=== PATIENT | female | born 1985 | race Two or more races ===

== ENCOUNTER → 2017-07-07 | Outpatient (REF) | payer OTHER ==
[2017-07-07 20:49] LABS: INFLUENZA A AMPLIFICATION NEGATIVE (NEGATIVE); INFLUENZA B AMPLIFICATION NEGATIVE (NEGATIVE)
== END ==
LOC: M SFHCLERA 17:49
DX: R53.81 Other malaise (principal)

== ENCOUNTER → 2017-07-31 | Outpatient (CLI) | payer OTHER | LOC: M RAD 12:55 | DX: R07.89 Other chest pain (principal) | CPT/HCPCS: A9540 ==

== ENCOUNTER → 2018-02-04 | Outpatient (REF) | payer OTHER | LOC: M SFHCLERA 20:19 | DX: J02.9 Acute pharyngitis, unspecified (principal) ==

== ENCOUNTER 2018-02-17 14:41 | Emergency (ER) | payer OTHER ==
[2018-02-17] MEDS: LORazepam 2 MG/ML VIAL (J2060) IV ×2 (15:01→16:44)
[2018-02-17] MEDS: KETOROLAC 30 MG/ML VIAL (J1885) IV (15:01)
[2018-02-17] MEDS: LIDOCAINE 5% (LIDODERM) PATCH TD (15:22)
[2018-02-17] MEDS: ACETAMINOPHEN 325 MG TAB PO (16:44)
[2018-02-17] MEDS ORDERED: **NOTE PATIENT COMMENT** MISC XX (21:00)
== END 2018-02-17 17:29 | disposition home or self-care (01) ==
LOC: M ED 14:41
DX: M54.5 Low back pain (principal); I10 Essential (primary) hypertension; F41.9 Anxiety disorder, unspecified; F32.9 Major depressive disorder, single episode, unspecified; Z88.1 Allergy status to other antibiotic agents; Z88.8 Allergy status to other drugs, medicaments and biological substances; Z88.5 Allergy status to narcotic agent
CPT/HCPCS: J1885

== ENCOUNTER 2018-09-14 19:45 | Emergency (ER) | payer OTHER ==
[~2018-09-14] VITALS: Ht 167.6 cm; Wt 118.2 kg
[~2018-09-14 19:45] MED LIST: CYCL5TAB PO; LIDO5DIS41 TOP
[2018-09-14] MEDS ORDERED: TRAZ-160 (20:01)
[2018-09-14] MEDS ORDERED: SUMA6INJ16 (20:01)
[2018-09-14] MEDS ORDERED: ARIP1TAB10 (20:01)
[2018-09-14] MEDS ORDERED: ZYRTTAB8 PO (20:01)
[2018-09-14] MEDS ORDERED: PROAAER10 (20:01)
[2018-09-14] MEDS ORDERED: ELIQ2.5T (20:01)
[2018-09-14] MEDS ORDERED: ALPR1TAB3 (20:01)
[2018-09-14] MEDS ORDERED: OXTE600T (20:01)
[2018-09-14] MEDS ORDERED: HYDR12CA (20:01)
[2018-09-14] MEDS ORDERED: VIIB40TA (20:01)
[2018-09-14] MEDS ORDERED: MONT10TA2 (20:01)
[2018-09-14] MEDS ORDERED: PROP80CA (20:01)
[2018-09-14] MEDS ORDERED: FOLI400T PO (20:01)
[2018-09-14] MEDS ORDERED: VIIB10TA (20:01)
[2018-09-14] MEDS ORDERED: NS 1,000 ML IV ONE (20:45)
[2018-09-14] MEDS ORDERED: ONDANSETRON 4MG/2ML VIAL (J2405) IV ONE (20:45)
[2018-09-14 20:58] LABS: BASO # 0.1 10^3/uL (0.0-0.2); BASO % 0.7 % (0.0-1.0); EOS # 0.2 10^3/uL (0.0-0.50); HEMATOCRIT 42.7 % (36.0-47.0); HEMOGLOBIN 14.2 g/dl (12.0-15.5); LYMPH # 2.3 10^3/uL (1.5-4.5); LYMPH % 31.1 % (24.0-44.0); MEAN CORPUSCULAR HEMOGLOBIN 27.4 pg (27.0-33.0); MEAN CORPUSCULAR HGB CONC 33.3 g/dl (32.0-36.5); MEAN CORPUSCULAR VOLUME 82.3 fl (80.0-96.0); MONO # 0.5 10^3/uL (0.0-0.8); MONO % 6.5 % (0.0-5.0); NEUTROPHILS # 4.5 10^3/uL (1.8-7.7); NEUTROPHILS % 59.4 % (36.0-66.0); PLATELET COUNT, AUTOMATED 198 10^3/uL (150-450); RED BLOOD COUNT 5.19 10^6/uL (4.00-5.40); WHITE BLOOD COUNT 7.5 10^3/uL (4.0-10.0)
[2018-09-14 21:27] LABS: ALBUMIN 3.5 GM/DL (3.2-5.2); ALT/SGPT 48 U/L (12-78); AMYLASE 39 U/L (25-115); BILIRUBIN,TOTAL 0.6 MG/DL (0.2-1.0); BLOOD UREA NITROGEN 15 MG/DL (7-18); CALCIUM LEVEL 8.6 MG/DL (8.5-10.1); CARBON DIOXIDE LEVEL 22 MEQ/L (21-32); CHLORIDE LEVEL 111 MEQ/L (98-107); CREATININE FOR GFR 0.71 MG/DL (0.55-1.30); GLOMERULAR FILTRATION RATE > 60.0 (>60); GLUCOSE, FASTING 82 MG/DL (70-100); HCG, SERUM QUANTITATIVE < 1.0 MIU/ML; LIPASE 94 U/L (73-393); POTASSIUM SERUM 4.1 MEQ/L (3.5-5.1); SODIUM LEVEL 142 MEQ/L (136-145); TOTAL PROTEIN 6.8 GM/DL (6.4-8.2)
[2018-09-14] MEDS ORDERED: ONDA4TAB6 PO (22:06)
[2018-09-14 22:33] VITALS: BP 123/78
== END 2018-09-14 22:34 | disposition home or self-care (01) ==
LOC: M ED 19:45
DX: R11.2 Nausea with vomiting, unspecified (principal); I10 Essential (primary) hypertension; J45.909 Unspecified asthma, uncomplicated; F32.9 Major depressive disorder, single episode, unspecified; F41.9 Anxiety disorder, unspecified; Z88.1 Allergy status to other antibiotic agents; Z88.5 Allergy status to narcotic agent; Z88.8 Allergy status to other drugs, medicaments and biological substances; Z91.041 Radiographic dye allergy status
CPT/HCPCS: 80053; 82150; 83690; 84702; 85025; 96361; 96374; 99284; J2405

== ENCOUNTER 2018-12-11 03:12 | Emergency (ER) | payer OTHER ==
[~2018-12-11] VITALS: Ht 167.6 cm; Wt 117.7 kg
[~2018-12-11 03:12] MED LIST changes: +ALPR1TAB3; +ARIP1TAB10; +ELIQ2.5T; +FOLI400T PO; +HYDR12CA; +MONT10TA2; +ONDA4TAB6 PO; +OXTE600T; +PROAAER10; +PROP80CA; +SUMA6INJ16; +TRAZ-252; +VIIB10TA; +VIIB40TA; +ZYRTTAB8 PO
[2018-12-11] MEDS ORDERED: METAL LOCK LOOP XX ONE (03:27)
[2018-12-11 03:54] LABS: BASO # 0.1 10^3/uL (0.0-0.2); BASO % 0.7 % (0.0-1.0); EOS # 0.2 10^3/uL (0.0-0.50); EOS % 2.3 % (0.0-3.0); HEMATOCRIT 40.8 % (36.0-47.0); HEMOGLOBIN 13.8 g/dl (12.0-15.5); LYMPH # 2.7 10^3/uL (1.5-4.5); LYMPH % 39.7 % (24.0-44.0); MEAN CORPUSCULAR HEMOGLOBIN 27.9 pg (27.0-33.0); MEAN CORPUSCULAR HGB CONC 33.8 g/dl (32.0-36.5); MEAN CORPUSCULAR VOLUME 82.4 fl (80.0-96.0); MONO # 0.6 10^3/uL (0.0-0.8); NEUTROPHILS # 3.4 10^3/uL (1.8-7.7); NEUTROPHILS % 49.2 % (36.0-66.0); PLATELET COUNT, AUTOMATED 202 10^3/uL (150-450); RED BLOOD COUNT 4.95 10^6/uL (4.00-5.40); WHITE BLOOD COUNT 6.9 10^3/uL (4.0-10.0)
[2018-12-11 04:48] VITALS: BP 130/79
== END 2018-12-11 04:50 | disposition home or self-care (01) ==
LOC: M ED 03:12
DX: N92.4 Excessive bleeding in the premenopausal period (principal); I10 Essential (primary) hypertension; J45.909 Unspecified asthma, uncomplicated; D68.51 Activated protein C resistance; E66.9 Obesity, unspecified; Z79.899 Other long term (current) drug therapy; Z88.1 Allergy status to other antibiotic agents; Z88.5 Allergy status to narcotic agent; Z88.8 Allergy status to other drugs, medicaments and biological substances; Z91.89 Other specified personal risk factors, not elsewhere classified

== ENCOUNTER 2018-12-14 12:43 | Emergency (ER) | payer OTHER ==
[~2018-12-14] VITALS: Ht 167.6 cm; Wt 118.9 kg
[2018-12-14 14:11] LABS: BASO % 0.8 % (0.0-1.0); EOS # 0.2 10^3/uL (0.0-0.50); EOS % 3.8 % (0.0-3.0); HEMOGLOBIN 13.9 g/dl (12.0-15.5); LYMPH # 1.5 10^3/uL (1.5-4.5); LYMPH % 31.1 % (24.0-44.0); MEAN CORPUSCULAR HEMOGLOBIN 27.8 pg (27.0-33.0); MEAN CORPUSCULAR HGB CONC 33.9 g/dl (32.0-36.5); MONO # 0.4 10^3/uL (0.0-0.8); MONO % 7.6 % (0.0-5.0); NEUTROPHILS # 2.7 10^3/uL (1.8-7.7); NEUTROPHILS % 56.5 % (36.0-66.0); PLATELET COUNT, AUTOMATED 211 10^3/uL (150-450); WHITE BLOOD COUNT 4.7 10^3/uL (4.0-10.0)
[2018-12-14] MEDS ORDERED: NS 1,000 ML IV ONE (14:45)
[2018-12-14] MEDS ORDERED: diphenhydrAMINE INJ 50MG/ML VIAL (J1200) IV ONE (14:45)
[2018-12-14] MEDS ORDERED: METOCLOPRAMIDE INJ 10MG/2ML VIAL (J2765) IV ONE (14:45)
[2018-12-14 14:46] LABS: ALBUMIN 3.5 GM/DL (3.2-5.2); ALT/SGPT 48 U/L (12-78); BILIRUBIN,DIRECT 0.2 MG/DL (0.0-0.2); BILIRUBIN,TOTAL 0.7 MG/DL (0.2-1.0); BLOOD UREA NITROGEN 15 MG/DL (7-18); CALCIUM LEVEL 8.8 MG/DL (8.5-10.1); CARBON DIOXIDE LEVEL 25 MEQ/L (21-32); CHLORIDE LEVEL 108 MEQ/L (98-107); CREATININE FOR GFR 0.82 MG/DL (0.55-1.30); GLOMERULAR FILTRATION RATE > 60.0 (>60); GLUCOSE, FASTING 114 MG/DL (70-100); LIPASE 79 U/L (73-393); POTASSIUM SERUM 3.7 MEQ/L (3.5-5.1); SODIUM LEVEL 143 MEQ/L (136-145); TOTAL PROTEIN 6.5 GM/DL (6.4-8.2)
[2018-12-14 14:56] LABS: HCG, SERUM QUALITATIVE NEGATIVE (NEGATIVE)
[2018-12-14] MEDS ORDERED: VANC125C3 PO (16:27)
[2018-12-14] MEDS ORDERED: VANCOMYCIN ORAL SOL 250MG/5ML ORAL SYRINGE PO ONE (16:30)
[2018-12-14] MEDS ORDERED: PERCOCET 5MG/325MG TAB PO ONE (16:45)
[2018-12-14 17:13] VITALS: BP 110/68
== END 2018-12-14 18:12 | disposition home or self-care (01) ==
LOC: M ED 15:01
DX: A04.72 Enterocolitis due to Clostridium difficile, not specified as recurrent (principal); R31.9 Hematuria, unspecified; R11.10 Vomiting, unspecified; R19.7 Diarrhea, unspecified; I10 Essential (primary) hypertension; D68.59 Other primary thrombophilia; J45.909 Unspecified asthma, uncomplicated; Z79.899 Other long term (current) drug therapy; Z88.1 Allergy status to other antibiotic agents; Z88.5 Allergy status to narcotic agent; Z88.8 Allergy status to other drugs, medicaments and biological substances
CPT/HCPCS: 36415; 80048; 80076; 81001; 83690; 84702; 84703; 85025; 87507; 96361; 96374; 96375; 99284; J1200; J2765

== ENCOUNTER 2019-02-01 11:38 | Emergency (ER) | payer OTHER ==
[~2019-02-01] VITALS: Ht 167.6 cm; Wt 120.1 kg
[~2019-02-01 11:38] MED LIST changes: +VANC125C3 PO
[2019-02-01] MEDS ORDERED: DERMABOND TOPICAL SKIN ADHESIVE TOP ONE (12:45)
[2019-02-01] MEDS ORDERED: ADACEL/BOOSTRIX VACCINE (DIPHTH/PERTUSS/ACELL/TETANUS)0.5ML SYR (90715) IM ONE (12:45)
--- NOTE | 2019-02-01 13:01 | REP ---
Clinical: Trauma. Technique: AP, lateral, bilateral oblique views right second digit . Findings: The osseous structures and joint spaces are intact and normal. There is no evidence for acute fracture or dislocation. Soft tissue injury overlying the distal interphalangeal joint and distal phalanx noted. No radiodense foreign body. Impression: Soft tissue injury. No foreign body. No acute fracture or dislocation. Electronically Signed by Leo Atkinson MD 02/01/2019 12:52 P
[2019-02-01 13:39] VITALS: BP 119/75
== END 2019-02-01 13:44 | disposition home or self-care (01) ==
LOC: M ED 11:38
DX: S61.200A Unspecified open wound of right index finger without damage to nail, initial encounter (principal); W26.8XXA Contact with other sharp object(s), not elsewhere classified, initial encounter; Y92.013 Bedroom of single-family (private) house as the place of occurrence of the external cause; Y93.E5 Activity, floor mopping and cleaning; Y99.0 Civilian activity done for income or pay

== ENCOUNTER 2019-02-02 10:14 | Emergency (ER) | payer OTHER ==
[~2019-02-02] VITALS: Ht 167.6 cm; Wt 117.3 kg
[2019-02-02 10:15] VITALS: BP 135/86
[2019-02-02] MEDS ORDERED: NEOSPORIN OINT 0.9 GM PKT (FLOOR STOCK) TOP ONE (10:45)
[2019-02-02] MEDS ORDERED: NEOSPORIN OINT 0.9 GM PKT (FLOOR STOCK) As Ordered ONE (10:46)
[2019-02-03] MEDS ORDERED: NEOSPORIN TOP OINT 15GM TOP ONE (09:00)
== END 2019-02-02 11:05 | disposition home or self-care (01) ==
LOC: M ED 10:14
DX: S61.200D Unspecified open wound of right index finger without damage to nail, subsequent encounter (principal)

== ENCOUNTER → 2019-03-20 | Outpatient (REF) | payer OTHER | LOC: M SFHCLERA 11:23 | PROVIDERS: ATTEND Nurse Practitioner Family | DX: R53.81 Other malaise (principal) ==

== ENCOUNTER → 2019-05-23 | Outpatient (CLI) | payer OTHER ==
[~2019-05-23] MED LIST changes: +ONDA8TAB8 PO; +ULTR50TA8 PO
[2019-05-23 15:26] LABS: BASO % 0.6 % (0.0-1.0); EOS # 0.1 10^3/uL (0.0-0.5); EOS % 1.5 % (0.0-3.0); HEMATOCRIT 44.8 % (36.0-47.0); HEMOGLOBIN 14.8 g/dl (12.0-15.5); LYMPH % 31.4 % (24.0-44.0); MEAN CORPUSCULAR HEMOGLOBIN 27.5 pg (27.0-33.0); MEAN CORPUSCULAR VOLUME 83.3 fl (80.0-96.0); MONO # 0.4 10^3/uL (0.0-0.8); MONO % 5.4 % (0.0-5.0); NEUTROPHILS # 3.9 10^3/uL (1.5-8.5); NEUTROPHILS % 60.9 % (36.0-66.0); PLATELET COUNT, AUTOMATED 206 10^3/uL (150-450); RED BLOOD COUNT 5.38 10^6/uL (4.00-5.40); WHITE BLOOD COUNT 6.5 10^3/uL (4.0-10.0)
[2019-05-23 15:55] LABS: ALT/SGPT 43 U/L (12-78); AMYLASE 39 U/L (25-115); BILIRUBIN,TOTAL 0.6 MG/DL (0.2-1.0); BLOOD UREA NITROGEN 14 MG/DL (7-18); CALCIUM LEVEL 9.3 MG/DL (8.5-10.1); CARBON DIOXIDE LEVEL 26 MEQ/L (21-32); CHLORIDE LEVEL 107 MEQ/L (98-107); CHOLESTEROL LEVEL 182 MG/DL (<200); GLOMERULAR FILTRATION RATE > 60.0 (>60); GLUCOSE, FASTING 68 MG/DL (70-100); HDL CHOLESTEROL 52 MG/DL (>40); LDL CHOLESTEROL 100 MG/DL (<100); LIPASE 78 U/L (73-393); NON-HDL-C 130 MG/DL; POTASSIUM SERUM 3.9 MEQ/L (3.5-5.1); SODIUM LEVEL 141 MEQ/L (136-145); THYROID STIMULATING HORMONE 0.519 uIU/ML (0.358-3.740); TOTAL PROTEIN 7.3 GM/DL (6.4-8.2); TRIGLYCERIDES LEVEL 149 MG/DL (<150)
[2019-05-23 16:25] LABS: HEMOGLOBIN A1c 4.9 %
[2019-05-28 00:10] LABS: OXCARBAZEPINE 7 ug/mL (10-35)
== END ==
LOC: M LAB 14:42
PROVIDERS: ATTEND Psychiatry & Neurology Child & Adolescent Psychiatry
DX: F32.9 Major depressive disorder, single episode, unspecified (principal)
CPT/HCPCS: 36415; 80053; 80061; 80183; 80307; 82150; 83036; 83690; 84439; 84443; 85025; G0480

== ENCOUNTER 2019-05-25 09:26 | Emergency (ER) | payer OTHER ==
[~2019-05-25] VITALS: Ht 167.6 cm; Wt 120.6 kg
[~2019-05-25 09:26] MED LIST changes: -ONDA8TAB8 PO; -ULTR50TA8 PO
[2019-05-25] MEDS ORDERED: ONDANSETRON 4MG/2ML VIAL (J2405) IV ONE (10:15)
[2019-05-25] MEDS ORDERED: NS 1,000 ML IV ONE (10:15)
[2019-05-25 10:24] LABS: BASO # 0.1 10^3/uL (0.0-0.2); BASO % 1.1 % (0.0-1.0); EOS # 0.2 10^3/uL (0.0-0.5); EOS % 2.7 % (0.0-3.0); HEMATOCRIT 44.5 % (36.0-47.0); HEMOGLOBIN 14.8 g/dl (12.0-15.5); LYMPH # 1.9 10^3/uL (1.5-5.0); LYMPH % 30.7 % (24.0-44.0); MEAN CORPUSCULAR HEMOGLOBIN 27.6 pg (27.0-33.0); MEAN CORPUSCULAR HGB CONC 33.3 g/dl (32.0-36.5); MEAN CORPUSCULAR VOLUME 82.9 fl (80.0-96.0); MONO # 0.4 10^3/uL (0.0-0.8); MONO % 7.1 % (0.0-5.0); NEUTROPHILS # 3.6 10^3/uL (1.5-8.5); NEUTROPHILS % 58.1 % (36.0-66.0); PLATELET COUNT, AUTOMATED 227 10^3/uL (150-450); RED BLOOD COUNT 5.37 10^6/uL (4.00-5.40); WHITE BLOOD COUNT 6.2 10^3/uL (4.0-10.0)
[2019-05-25] MEDS ORDERED: ACETAMINOPHEN 500 MG TAB PO ONE (10:45)
[2019-05-25 10:47] LABS: ALBUMIN 3.8 GM/DL (3.2-5.2); BILIRUBIN,DIRECT 0.2 MG/DL (0.0-0.2); BILIRUBIN,TOTAL 0.9 MG/DL (0.2-1.0)
--- NOTE | 2019-05-25 11:51 | REP ---
Clinical: Left lower pelvic pain . Technique: Transabdominal pelvic ultrasound with color Doppler evaluation of the ovaries. Findings: Bladder is unremarkable and measures 8.2 x 4.6 x 3.5 cm . Normal anteverted uterus measures 7.6 x 3.7 x 6.3 cm . The endometrial complex measures 4.5 mm thickness. No discrete uterine or endometrial abnormalities are appreciated. Bilateral ovaries are normal in appearance and vascularity without evidence for torsion. Right ovary measures 5.8 x 3.3 x 5.1 cm with 3.8 cm cyst ; R I = 0.58 . Left ovary measures 3.0 x 1.8 x 4.1 cm ; R I = 0.49 . No pelvic fluid or adnexal mass lesion . Impression: 1. Right ovarian cyst likely physiologic. Consider reevaluation in 4-6 weeks to evaluate for resolution. Electronically Signed by Leo Atkinson MD 05/25/2019 11:43 A
--- NOTE | 2019-05-25 13:01 | REP ---
Clinical: Left flank pain. Technique: Axial noncontrast images from the lung bases to the pubic symphysis with coronal and sagittal re-formations. Findings: Lung bases are clear. Fatty infiltration to the liver suggested along with hepatosplenomegaly. Pancreas, gallbladder, bilateral adrenal glands and kidneys are normal. No perinephric stranding, hydroureteronephrosis, intrarenal or obstructing ureteral calculi are identified. The enteric system is without obstruction or acute inflammatory process. Pelvis demonstrates normal bladder and age-appropriate uterus/adnexa. No ascites. No free air. No adenopathy. Abdominal aorta without aneurysm. Musculoskeletal structures are intact. Impression: No acute abdominopelvic pathology appreciated. Hepatosteatosis and hepatosplenomegaly cannot be excluded. No ascites. No inflammatory stranding. No adenopathy. Electronically Signed by Leo Atkinson MD 05/25/2019 12:52 P
[2019-05-25 14:51] LABS: MONO REFLEX EBV COMP NEGATIVE (NEGATIVE)
[2019-05-25 15:45] VITALS: BP 134/67
--- NOTE | 2019-05-26 09:01 | ED PDOC ---
Post-Departure Follow-Up ft jatin burnett faxed formal report of pelvic us for fu Lola Garzon MD May 26, 2019 09:01
[2019-05-28 00:10] LABS: EBV AB TO NUCLEAR ANTIGEN <18.0 U/mL (0.0-17.9); EBV VIRAL CAPSID AG IgM <36.0 U/mL (0.0-35.9)
== END 2019-05-25 15:48 | disposition home or self-care (01) ==
LOC: M ED 09:26
DX: N83.201 Unspecified ovarian cyst, right side (principal); R16.2 Hepatomegaly with splenomegaly, not elsewhere classified; I10 Essential (primary) hypertension; J45.909 Unspecified asthma, uncomplicated; F33.9 Major depressive disorder, recurrent, unspecified; F41.9 Anxiety disorder, unspecified; K21.9 Gastro-esophageal reflux disease without esophagitis; D68.2 Hereditary deficiency of other clotting factors; Z79.899 Other long term (current) drug therapy; Z79.01 Long term (current) use of anticoagulants; Z88.1 Allergy status to other antibiotic agents; Z88.5 Allergy status to narcotic agent; Z88.8 Allergy status to other drugs, medicaments and biological substances
CPT/HCPCS: 74176; 76856; 80047; 80076; 81001; 83605; 83690; 84702; 85025; 86308; 86663; 86664; 86665; 96361; 96374; 99284; J2405

== ENCOUNTER 2019-05-28 07:31 | Emergency (ER) | payer OTHER ==
[~2019-05-28] VITALS: Ht 167.6 cm; Wt 121.0 kg
[2019-05-28 08:46] LABS: BASO # 0.1 10^3/uL (0.0-0.2); BASO % 0.7 % (0.0-1.0); EOS # 0.2 10^3/uL (0.0-0.5); EOS % 2.2 % (0.0-3.0); HEMATOCRIT 44.1 % (36.0-47.0); HEMOGLOBIN 14.5 g/dl (12.0-15.5); LYMPH # 2.4 10^3/uL (1.5-5.0); LYMPH % 33.2 % (24.0-44.0); MEAN CORPUSCULAR HEMOGLOBIN 27.4 pg (27.0-33.0); MEAN CORPUSCULAR HGB CONC 32.9 g/dl (32.0-36.5); MEAN CORPUSCULAR VOLUME 83.2 fl (80.0-96.0); MONO # 0.5 10^3/uL (0.0-0.8); MONO % 6.4 % (0.0-5.0); NEUTROPHILS # 4.2 10^3/uL (1.5-8.5); NEUTROPHILS % 57.2 % (36.0-66.0); PLATELET COUNT, AUTOMATED 251 10^3/uL (150-450); WHITE BLOOD COUNT 7.3 10^3/uL (4.0-10.0)
[2019-05-28] MEDS ORDERED: ACETAMINOPHEN 325 MG TAB PO ONE (09:00)
[2019-05-28 09:23] LABS: ALBUMIN 3.8 GM/DL (3.2-5.2); ALT/SGPT 48 U/L (12-78); AMYLASE 39 U/L (25-115); BILIRUBIN,DIRECT 0.2 MG/DL (0.0-0.2); BILIRUBIN,TOTAL 0.6 MG/DL (0.2-1.0); BLOOD UREA NITROGEN 15 MG/DL (7-18); CALCIUM LEVEL 8.9 MG/DL (8.5-10.1); CARBON DIOXIDE LEVEL 20 MEQ/L (21-32); CHLORIDE LEVEL 108 MEQ/L (98-107); CREATININE FOR GFR 0.76 MG/DL (0.55-1.30); GLOMERULAR FILTRATION RATE > 60.0 (>60); GLUCOSE, FASTING 76 MG/DL (70-100); POTASSIUM SERUM 4.2 MEQ/L (3.5-5.1); SODIUM LEVEL 140 MEQ/L (136-145); TOTAL PROTEIN 7.3 GM/DL (6.4-8.2)
[2019-05-28] MEDS ORDERED: traMADol 50 MG TAB PO ONE (10:15)
[2019-05-28] MEDS ORDERED: ONDANSETRON 4MG/2ML VIAL (J2405) IV ONE (10:15)
[2019-05-28] MEDS ORDERED: ULTR50TA8 PO (11:17)
[2019-05-28] MEDS ORDERED: ONDA8TAB8 PO (11:17)
[2019-05-28 11:34] VITALS: BP 120/88
[2019-05-28] MEDS ORDERED: ONDANSETRON 4 MG ORAL DISINTEGRATING TAB (Q0162 PER 1MG) PO ONE (11:45)
== END 2019-05-28 11:38 | disposition home or self-care (01) ==
LOC: M ED 07:31
DX: K92.1 Melena (principal); K64.4 Residual hemorrhoidal skin tags; R19.7 Diarrhea, unspecified; R19.02 Left upper quadrant abdominal swelling, mass and lump; R19.04 Left lower quadrant abdominal swelling, mass and lump; I10 Essential (primary) hypertension; D68.2 Hereditary deficiency of other clotting factors; F41.9 Anxiety disorder, unspecified; F32.9 Major depressive disorder, single episode, unspecified; J45.909 Unspecified asthma, uncomplicated; Z88.8 Allergy status to other drugs, medicaments and biological substances; Z88.5 Allergy status to narcotic agent; Z88.1 Allergy status to other antibiotic agents; Z79.899 Other long term (current) drug therapy; Z79.01 Long term (current) use of anticoagulants
CPT/HCPCS: 80048; 80076; 82150; 85025; 87507; 96374; 99283; J2405; Q0162

== ENCOUNTER 2019-06-14 14:27 | Emergency (ER) | payer OTHER ==
[~2019-06-14] VITALS: Ht 167.6 cm; Wt 121.6 kg
[~2019-06-14 14:27] MED LIST changes: +ONDA8TAB8 PO; +ULTR50TA8 PO
[2019-06-14] MEDS ORDERED: HYDR50TA70 PO (14:37)
[2019-06-14] MEDS ORDERED: DICY20TA11 PO ×2 (14:37→17:32)
[2019-06-14 15:03] LABS: BASO # 0.1 10^3/uL (0.0-0.2); BASO % 0.7 % (0.0-1.0); EOS # 0.2 10^3/uL (0.0-0.5); EOS % 1.9 % (0.0-3.0); HEMATOCRIT 43.3 % (36.0-47.0); HEMOGLOBIN 14.5 g/dl (12.0-15.5); LYMPH # 1.8 10^3/uL (1.5-5.0); LYMPH % 20.3 % (24.0-44.0); MEAN CORPUSCULAR HEMOGLOBIN 27.5 pg (27.0-33.0); MEAN CORPUSCULAR HGB CONC 33.5 g/dl (32.0-36.5); MONO # 0.6 10^3/uL (0.0-0.8); MONO % 7.2 % (0.0-5.0); NEUTROPHILS # 6.1 10^3/uL (1.5-8.5); NEUTROPHILS % 69.7 % (36.0-66.0); PLATELET COUNT, AUTOMATED 201 10^3/uL (150-450); RED BLOOD COUNT 5.28 10^6/uL (4.00-5.40); WHITE BLOOD COUNT 8.8 10^3/uL (4.0-10.0)
[2019-06-14 15:32] LABS: ALBUMIN 3.7 GM/DL (3.2-5.2); BILIRUBIN,DIRECT 0.1 MG/DL (0.0-0.2); BILIRUBIN,TOTAL 0.5 MG/DL (0.2-1.0)
[2019-06-14] MEDS ORDERED: ONDANSETRON 4MG/2ML VIAL (J2405) IV ONE (15:45)
[2019-06-14] MEDS ORDERED: NS 1,000 ML IV ONE (15:45)
[2019-06-14] MEDS ORDERED: KETOROLAC 30 MG/ML VIAL (J1885) IV ONE (15:45)
--- NOTE | 2019-06-14 16:58 | REP ---
Left upper quadrant abdominal sonography: History: Left upper quadrant pain. Comparison CT study 05/25/2019. Sonographic findings: Scanning through the left upper quadrant of the abdomen demonstrates a homogeneous enlarged spleen measuring 15.5 x 5.0 x 13.0 cm. No focal splenic lesion is seen. The left kidney measures 13.1 x 4.7 x 4.2 cm. Renal cortical echogenicity pattern is normal. No hydronephrosis is seen. There is no evidence of ascites in the left upper quadrant. Impression: Splenomegaly. 15.5 cm. Otherwise negative left upper quadrant sonography. Electronically Signed by Humberto Reese MD 06/14/2019 04:50 P
[2019-06-14] MEDS ORDERED: SUMAtriptan SUCCINATE 6 MG/0.5 ML VIAL SC ONE (17:15)
[2019-06-14] MEDS ORDERED: ONDA4TAB6 PO (17:32)
[2019-06-14 18:01] VITALS: BP 131/81
--- NOTE | 2019-06-18 14:20 | ED PDOC ---
Post-Departure Follow-Up dr meade faxed formal report of abdl us for fu Lola Garzon MD Jun 18, 2019 14:20
== END 2019-06-14 18:08 | disposition home or self-care (01) ==
LOC: M ED 14:27
DX: R11.2 Nausea with vomiting, unspecified (principal); R19.7 Diarrhea, unspecified; D68.51 Activated protein C resistance; J45.909 Unspecified asthma, uncomplicated; F32.9 Major depressive disorder, single episode, unspecified; F41.9 Anxiety disorder, unspecified; I10 Essential (primary) hypertension; Z88.5 Allergy status to narcotic agent; Z88.3 Allergy status to other anti-infective agents; Z88.8 Allergy status to other drugs, medicaments and biological substances; Z88.1 Allergy status to other antibiotic agents; Z79.899 Other long term (current) drug therapy
CPT/HCPCS: 76705; 80047; 80076; 81001; 83690; 84702; 85025; 96361; 96372; 96374; 96375; 99284; J1885; J2405